=== PATIENT | male | born 1955 | race Caucasian/White ===

== ENCOUNTER 2017-08-27 18:28 | Emergency (ER) | payer BC, OTHER ==
[2017-08-27 18:44] VITALS: BP 143/103; PULSE 85; TEMP 98.5; BMI 27.1
[2017-08-27] MEDS ORDERED: TETANUS AND DIPHTHERIA TOXOID 0.5 ML DISP.SYRIN IM ONE (19:12)
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
[2017-08-27] MEDS ORDERED: DIPHTH,PERTUSS(ACELL),TET 0.5 ML DISP.SYRIN IM ONE (19:33)
--- NOTE | 2017-08-27 19:40 | PDOC ---
*Physical Exam - Vital Signs Last Vital Signs Temp Pulse Resp BP Pulse Ox 98.5 F 85 16 143/103 95 08/27/17 18:40 08/27/17 18:40 08/27/17 18:40 08/27/17 18:40 08/27/17 18:40 ED Treatment Course - Medications Given in the ED: ED Medications Discontinued Medications Generic Name Dose Route Start Last Admin Trade Name Frejamaal PRN Reason Stop Dose Admin Diphtheria/Tetanus/Acell Pertussis 0.5 ml 08/27/17 19:33 08/27/17 19:34 Boostrix - IM 08/27/17 19:34 0.5 ml .ONCE ONE Administration Tetanus/Diphtheria Toxoids Adsorbed 0.5 ml 08/27/17 19:12 08/27/17 19:37 Decavac IM 08/27/17 19:13 Not Given .ONCE ONE Medical Decision Making - Medical Decision Making 08/27/17 19:40 Pt seen by the Advanced Practice Provider under my direct supervision Ancillary studies reviewed I agree with plan as outlined by the Advanced Practice Provider GURPREET Blanco *DC/Admit/Observation/Transfer Diagnosis at time of Disposition: Closed head injury, Laceration of elbow, Contusion of elbow, right, Concussion - Discharge Dispostion Disposition: HOME Condition at time of disposition: Stable - Referrals Referrals: Александр Alexander MD [Staff Physician] - Jaylen Lindsey MD [Staff Physician] - - Patient Instructions Printed Discharge Instructions: DI for Laceration Repair -- Simple, DI for Contusion, DI for Closed Head Injury, DI for Postconcussion Syndrome Additional Instructions: Keep the incision clean and dry for 24 hours. After 24 hours, you may allow the soap and water to rinse off your incision. Avoid direct pressure of the water to the incision. Pat the incision dry with a clean clothe. Apply a small amount of bacitracin onto the incision. Cover the incision loosely with a bandaid. Take tylenol/motrin as needed for pain. Follow up with your physician or the ER in 48 hours for a wound check. Return to the ER if you notice red streaks, increase redness/swelling/severe pain to the incision. Suture removal in 12-13 days. Rest Increase fluids Follow up with your physician and the orthopedics/neurosurgeon listed on your discharge Return to the ER for any concerns - Post Discharge Activity
== END 2017-08-27 21:00 | disposition home or self-care (01) ==
LOC: JER 18:28
PROC: 0JQG0ZZ Repair Right Lower Arm Subcutaneous Tissue and Fascia, Open Approach (ICD-10-PCS; principal; 2017-08-27)
PROC: 3E0234Z Introduction of Serum, Toxoid and Vaccine into Muscle, Percutaneous Approach (ICD-10-PCS; 2017-08-27)
DX: S06.0X0A Concussion without loss of consciousness, initial encounter (principal); S51.011A Laceration without foreign body of right elbow, initial encounter; S00.03XA Contusion of scalp, initial encounter; V18.0XXA Pedal cycle driver injured in noncollision transport accident in nontraffic accident, initial encounter; Y92.488 Other paved roadways as the place of occurrence of the external cause; Y93.55 Activity, bike riding; Y99.8 Other external cause status
CPT/HCPCS: 70450-TC; 73070-TC-RT-FY; 90715; 99282-25

== ENCOUNTER 2017-08-29 12:07 | Emergency (ER) | payer BC, OTHER ==
[2017-08-29 12:12] VITALS: BP 136/84; PULSE 76; TEMP 97.8; BMI 26.4
--- NOTE | 2017-08-29 12:21 | PDOC ---
Suture Removal/Wound Check HPI - History of Present Illness Chief Complaint: Revisit,Wound Recheck Stated Complaint: SUTURE REMOVAL Time Seen by Provider: 08/29/17 12:20 History Source: Yes: Patient Exam Limitations: Yes: No Limitations - Onset of Previous Treatment Comment:: 08/29/17 12:31 61-year-old male presents to the ER for wound check to the right elbow that was sutured 2 days ago. Patient denies fever, chills, right elbow drainage, redness or lymphangitis. Patient states his elbow was fine up until this morning when his stepdaughter decided to scrub it with straight peroxide. Past History - Past Medical History Allergies/Adverse Reactions: Allergies Allergy/AdvReac Type Severity Reaction Status Date / Time No Known Allergies Allergy Verified 08/29/17 12:08 Home Medications: Ambulatory Orders Cephalexin Monohydrate [Keflex -] 500 mg PO BID #14 capsule 08/29/17 CVA: No COPD: No DVT: No Dementia: No - Surgical History Appendectomy: Yes - Immunization History Immunization Up to Date: Yes - Suicide/Smoking/Psychosocial Hx Smoking History: Former smoker Have you smoked in the past 12 months: Yes If you are a former smoker, when did you quit?: 12/2016 Information on smoking cessation initiated: No Hx Alcohol Use: No Drug/Substance Use Hx: No Substance Use Type: None *Review of Systems - Review of Systems Able to Perform ROS?: Yes Comments:: 08/29/17 12:29 Right elbow Slight discomfort with mild Denies drainage, lymphangitis, extremity numbness or tingling sensation CONSTITUTIONAL: Absent: fever, chills, diaphoresis, generalized weakness, malaise, loss of appetite SKIN: Absent: rash, itching, pallor *Physical Exam - Vital Signs Last Vital Signs Temp Pulse Resp BP Pulse Ox 97.8 F 76 18 136/84 97 08/29/17 12:08 08/29/17 12:08 08/29/17 12:08 08/29/17 12:08 08/29/17 12:08 - Physical Exam Comments: 08/29/17 12:30 GENERAL: Well developed, well nourished. Awake and alert. No acute distress. No cyanosis. No clubbing. No edema. No calf tenderness. SKIN: Warm and dry. Normal capillary refill. No rashes. No jaundice. Sutures intact, slightly erythematous without pain on palpation, drainage or lymphangitis *DC/Admit/Observation/Transfer Diagnosis at time of Disposition: Visit for wound check - Discharge Dispostion Disposition: HOME Condition at time of disposition: Stable Decision to Admit order: No - Prescriptions Prescriptions: Cephalexin Monohydrate [Keflex -] 500 mg PO BID #14 capsule - Referrals - Patient Instructions Additional Instructions: Return back to the emergency department in 10 days for suture removal - Post Discharge Activity
== END 2017-08-29 12:33 | disposition home or self-care (01) ==
LOC: JERFT 12:07
DX: Z51.89 Encounter for other specified aftercare (principal)
CPT/HCPCS: 99281-25

== ENCOUNTER 2017-09-07 18:01 | Emergency (ER) | payer BC, OTHER ==
--- NOTE | 2017-09-07 18:06 | PDOC ---
Rapid Medical Evaluation Time Seen by Provider: 09/07/17 18:02 Medical Evaluation: Allergies Allergy/AdvReac Type Severity Reaction Status Date / Time No Known Allergies Allergy Verified 08/29/17 12:08 I have performed a brief in-person evaluation of this patient. The patient presents with a chief complaint of: here for suture removal right elbow. still has left hand and wrist pain from injury and never had xrays Pertinent physical exam findings: full range of motion of right wrist with pain. right elbow laceration with some purulent discharge and surrounding erythema. No warmth or streaking I have ordered the following: xray right hand/wrist The patient will proceed to the ED for further evaluation. Discharge Disposition - Diagnosis Visit for suture removal, Wrist pain, right - Referrals - Patient Instructions - Post Discharge Activity
[2017-09-07 18:08] VITALS: BP 146/72; PULSE 73; TEMP 97.9; BMI 26.4
--- NOTE | 2017-09-07 19:07 | PDOC ---
History of Present Illness - General Chief Complaint: Injury Stated Complaint: SUTURE REMOVAL Time Seen by Provider: 09/07/17 18:02 History Source: Patient Exam Limitations: No Limitations - History of Present Illness Initial Comments: 09/07/17 19:27 Patient is a 61-year-old male who presents emergency department for suture removal from his right elbow. Patient states that he finished a course of Keflex previously prescribed him. He states that he sees clear discharge coming from the site. Pt. states he was using a cream on the rash made of honey and rubbing alcohol. Denies fevers, chills, numbness and tingling. He also states that he is able to fully move the elbow. Also admits to shooting pain from his fingers. He did not get an x-ray on his first visit here. Past History - Travel Traveled outside of the country in the last 30 days: No Close contact w/someone who was outside of country & ill: No - Past Medical History Allergies/Adverse Reactions: Allergies Allergy/AdvReac Type Severity Reaction Status Date / Time No Known Allergies Allergy Verified 09/07/17 18:02 Home Medications: Ambulatory Orders NK [No Known Home Medication] 09/07/17 CVA: No COPD: No DVT: No Dementia: No - Surgical History Appendectomy: Yes - Immunization History Immunization Up to Date: Yes - Suicide/Smoking/Psychosocial Hx Smoking History: Former smoker Have you smoked in the past 12 months: Yes If you are a former smoker, when did you quit?: 12/2016 Information on smoking cessation initiated: No Hx Alcohol Use: No Drug/Substance Use Hx: No Substance Use Type: None Review of Systems - Review of Systems Able to Perform ROS?: Yes Comments:: 09/07/17 19:31 CONSTITUTIONAL: Absent: fever, chills, diaphoresis, generalized weakness, malaise, loss of appetite MUSCULOSKELETAL: Present: R wrist and hand pain Absent: myalgia, arthralgia, joint swelling SKIN: Present: sutures intact to R elbow with surrounding rash Absent: itching, pallor HEMATOLOGIC/IMMUNOLOGIC: Absent: easy bleeding, easy bruising, lymphadenopathy, frequent infections ENDOCRINE: Absent: unexplained weight gain, unexplained weight loss, heat intolerance, cold intolerance NEUROLOGIC: Absent: headache, focal weakness or paresthesias, dizziness, unsteady gait, seizure, mental status changes, bladder or bowel incontinence PSYCHIATRIC: Absent: anxiety, depression, suicidal or homicidal ideation, hallucinations. Is the patient limited Northern Irish proficient: No *Physical Exam - Vital Signs Last Vital Signs Temp Pulse Resp BP Pulse Ox 97.9 F 73 18 146/72 95 09/07/17 18:04 09/07/17 18:04 09/07/17 18:04 09/07/17 18:04 09/07/17 18:04 - Physical Exam Comments: 09/07/17 19:32 GENERAL: [The patient is awake, alert, and fully oriented, in no acute distress. ] HEAD: [Normal with no signs of trauma.] EYES: [Pupils equal, round and reactive to light, extraocular movements intact, sclera anicteric, conjunctiva clear.] EXTREMITIES: [Normal range of motion to R elbow, no edema.] NEUROLOGICAL: [Normal speech, normal gait.] PSYCH: [Normal mood, normal affect.] SKIN: [Sutures intact to the R elbow. Surrounding contact dermaitits with granulation tissue. Poor healing. Warm, Dry, normal turgor, no rashes or lesions noted.] Medical Decision Making - Medical Decision Making 09/07/17 19:35 Patient is a 61-year-old male with emergency department for suture removal today. On exam patient with contact dermatitis-like changes to the right elbow around the stitches. Granulation tissue forming. Poor wound healing. Sutures were removed this time. Wound remains closed. No discharge seen. Full range of motion at the elbow. Instructed patient to leave the elbow dry and do not put any more creams on it. Informed him that if he should see any drainage he should return to the emergency department. X-ray of wrist and hand is negative for fracture at this time. Told patient follow up with referral. Return precautions given. Patient understands all discharge instructions and all cautions were answered. *DC/Admit/Observation/Transfer Diagnosis at time of Disposition: Visit for suture removal, Wrist pain, right - Discharge Dispostion Disposition: HOME Condition at time of disposition: Stable Decision to Admit order: No - Referrals Referrals: Stephan Arcos MD [Staff Physician] - - Patient Instructions Printed Discharge Instructions: DI for Suture Removal Additional Instructions: You had your sutures/addis removed today. Keep the wound dry. Do not put any creams on the wound until it heals Avoid soaking the area with water for 1 more week as to what the wound fully heal. Follow-up with her primary care doctor as needed Please follow up with ortho for your wrist pain in the next week. Return to the emergency department if you develop fevers, drainage from the site , increased pain, or have any changes in your symptoms. - Post Discharge Activity
== END 2017-09-07 19:11 | disposition home or self-care (01) ==
LOC: JERFT 18:01
DX: Z48.02 Encounter for removal of sutures (principal); M25.531 Pain in right wrist
CPT/HCPCS: 73110-TC-RT-FY; 73130-TC-RT-FY; 99281-25